=== PATIENT | male | born 1995 | race Hispanic/Latino ===

== ENCOUNTER 2024-05-27 13:26 | Emergency (ER) | payer SELFPAY ==
[~2024-05-27] VITALS: Ht 160 cm; Wt 90.7 kg
[2024-05-27] MEDS: IBUPROFEN 600 MG TAB PO STA (15:01)
[2024-05-27] MEDS: ACETAMINOPHEN 325 MG TAB PO ONE (15:01)
[2024-05-27] MEDS: SODIUM CHLORIDE 0.9% 1000ML 1,000 ML IV STA ×2 (15:02→16:27)
[2024-05-27 15:28] LABS: INFLUENZAE A&B ANTIGEN (RAPID) NEGATIVE (NEGATIVE); RESPIRATORY SYNC. VIRUS NEGATIVE (NEGATIVE)
[2024-05-27] MEDS: KETOROLAC TROMETHAMINE 30 MG/ML VIAL IV STA (16:27)
[2024-05-27 16:57] VITALS: PULSE 88; RESP 17; TEMP 99.7; O2SAT 100
== END 2024-05-27 17:15 | disposition home or self-care (01) ==
LOC: ER 14:09
DX: R50.9 Fever, unspecified (principal); B34.9 Viral infection, unspecified; R53.1 Weakness; R53.81 Other malaise; Z11.52 Encounter for screening for COVID-19
CPT/HCPCS: 87400; 87420; 99283; J1885; J7030; U0002

== ENCOUNTER 2024-06-01 18:10 | Inpatient (IN) | payer SELFPAY ==
[~2024-06-01] VITALS: Ht 160 cm; Wt 97.8 kg
[2024-06-01] MEDS ORDERED: IOPAMIDOL 370 MG/ML 100 ML INFUS..BTL INJ ONE (19:05)
[2024-06-01] MEDS ORDERED: KETOROLAC TROMETHAMINE 30 MG/ML VIAL ONE (19:32)
[2024-06-01] MEDS ORDERED: SODIUM CHLORIDE 0.9% 1000ML 1,000 ML ONE (19:32)
[2024-06-01] MEDS ORDERED: ONDANSETRON HCL INJ 2MG/ML 2ML 2 MG/ML VIAL ONE (19:32)
[2024-06-01] MEDS ORDERED: METRONIDAZOLE 500MG/NS 100ML 100 ML IV ONE (21:17)
[2024-06-01] MEDS ORDERED: CEFEPIME 2 GM in SODIUM CHLORIDE 0.9% 100 ML IV SCH (21:45)
[2024-06-01] MEDS ORDERED: PROMETHAZINE HCL (IM) 25 MG/ML VIAL IM PRN (22:00)
[2024-06-01 22:24] VITALS: PULSE 92; RESP 18; TEMP 98.1
[2024-06-01] MEDS: SODIUM CHLORIDE 0.9% IV SCH (22:31)
[2024-06-01] MEDS: CEFEPIME IV SCH (22:31)
[2024-06-01] MEDS: METRONIDAZOLE 500MG/NS 100ML 100 ML IV SCH (22:32)
[2024-06-01] MEDS: SODIUM CHLORIDE 0.9% 1000ML 1,000 ML IV SCH (23:21)
[2024-06-01] MEDS: ACETAMINOPHEN 1000 MG/100 ML IV SCH (23:22)
[2024-06-02] VITALS (11 sets, daily range): BP systolic 144–155; BP diastolic 74–85; PULSE 79–91; RESP 17–20; TEMP 97.9–98.8; O2SAT 98–100
[2024-06-02 08:02] LABS: BASOPHILS # (AUTO) 0.1 (0.0-0.1); BASOPHILS % 0.5 % (0.0-1.0); EOSINOPHILS # (AUTO) 0.1 (0.0-0.4); EOSINOPHILS % 0.3 % (0.0-6.0); HEMOGLOBIN 14.3 g/dL (14.0-18.0); LYMPHOCYTES # (AUTO) 2.7 (1.0-3.2); LYMPHOCYTES % 13.3 % (18.0-39.1); MEAN CORPUSCULAR HEMOGLOBIN 28.1 pg (28-32); MEAN CORPUSCULAR HGB CONC 31.8 g/dL (31-35); MEAN CORPUSCULAR VOLUME 88.4 fL (81-99); MONOCYTES # (AUTO) 1.7 (0.2-0.8); MONOCYTES % 8.2 % (4.4-11.3); NEUTROPHILS # (AUTO) 14.7 (2.1-6.9); NEUTROPHILS % 71.2 % (38.7-80.0); PLATELET COUNT 328 x10e3/uL (140-360); RED BLOOD COUNT 5.09 x10e6/uL (4.3-5.7); RED CELL DISTRIBUTION WIDTH 13.5 % (11.7-14.4); WHITE BLOOD COUNT 20.58 x10e3/uL (4.8-10.8)
[2024-06-02 08:33] LABS: ALBUMIN 2.7 g/dL (3.5-5.0); ALBUMIN/GLOBULIN RATIO 0.6 (0.8-2.0); ANION GAP 14.7 mmol/L (8-16); BILIRUBIN,TOTAL 0.8 mg/dL (0.2-1.2); CREATININE, SERUM 0.82 mg/dL (0.72-1.25); POTASSIUM 3.7 mmol/L (3.5-5.1)
[2024-06-02 10:36] LABS: BAND NEUTROPHILS % (MANUAL) 1 %; EOSINOPHILS % (MANUAL) 1 % (0-7); LYMPHOCYTES % (MANUAL) 12 % (19-48); METAMYELOCYTES % (MANUAL) 1 % (0-0); MONOCYTES % (MANUAL) 6 % (3.4-9.0); MYELOCYTES % (MANUAL) 2 % (0-0); NEUTROPHILS % (MANUAL) 65 % (40-74); PLATELET ESTIMATE ADEQUATE; PLATELET MORPHOLOGY COMMENT NORMAL; RBC MORPHOLOGY COMMENT NORMAL; REACTIVE LYMPHOCYTES 12
[2024-06-03] VITALS (8 sets, daily range): BP systolic 141–177; BP diastolic 66–84; PULSE 76–92; RESP 16–18; TEMP 98.2–99.7; O2SAT 98–100
[2024-06-03] MEDS: HYDRALAZINE HCL 20 MG/ML VIAL IV PRN (05:56)
[2024-06-03] MEDS: HYDROMORPHONE 1MG/1ML INJ IV PRN (05:56)
[2024-06-03 05:58] LABS: BASOPHILS % 0.1 % (0.0-1.0); EOSINOPHILS # (AUTO) 0.1 (0.0-0.4); EOSINOPHILS % 0.3 % (0.0-6.0); HEMATOCRIT 46.4 % (38.2-49.6); HEMOGLOBIN 15.1 g/dL (14.0-18.0); LYMPHOCYTES # (AUTO) 3.5 (1.0-3.2); MEAN CORPUSCULAR HEMOGLOBIN 28.1 pg (28-32); MEAN CORPUSCULAR HGB CONC 32.5 g/dL (31-35); MEAN CORPUSCULAR VOLUME 86.4 fL (81-99); MONOCYTES # (AUTO) 1.5 (0.2-0.8); MONOCYTES % 6.5 % (4.4-11.3); NEUTROPHILS # (AUTO) 16.5 (2.1-6.9); NEUTROPHILS % 71.4 % (38.7-80.0); PLATELET COUNT 369 x10e3/uL (140-360); RED BLOOD COUNT 5.37 x10e6/uL (4.3-5.7); RED CELL DISTRIBUTION WIDTH 13.5 % (11.7-14.4); WHITE BLOOD COUNT 23.12 x10e3/uL (4.8-10.8)
[2024-06-03 06:23] LABS: ANION GAP 18.4 mmol/L (8-16); CALCIUM 9.6 mg/dL (8.4-10.2); CREATININE, SERUM 0.82 mg/dL (0.72-1.25)
[2024-06-03 06:24] LABS: POTASSIUM 3.4 mmol/L (3.5-5.1)
[2024-06-03 10:04] LABS: BAND NEUTROPHILS % (MANUAL) 2 %; LYMPHOCYTES % (MANUAL) 21 % (19-48); METAMYELOCYTES % (MANUAL) 3 % (0-0); MONOCYTES % (MANUAL) 4 % (3.4-9.0); MYELOCYTES % (MANUAL) 3 % (0-0); NEUTROPHILS % (MANUAL) 67 % (40-74)
[2024-06-03 10:05] LABS: PLATELET ESTIMATE ADEQUATE; PLATELET MORPHOLOGY COMMENT NORMAL; RBC MORPHOLOGY COMMENT NORMAL
[2024-06-03] MEDS: ONDANSETRON HCL INJ 2MG/ML 2ML 2 MG/ML VIAL IV PRN (10:45)
[2024-06-04] VITALS (9 sets, daily range): BP systolic 135–162; BP diastolic 70–80; PULSE 83–98; RESP 18–20; TEMP 97.8–99; O2SAT 97–100
[2024-06-04 06:52] LABS: BASOPHILS # (AUTO) 0.2 (0.0-0.1); BASOPHILS % 0.6 % (0.0-1.0); EOSINOPHILS # (AUTO) 0.1 (0.0-0.4); EOSINOPHILS % 0.2 % (0.0-6.0); HEMATOCRIT 45.6 % (38.2-49.6); HEMOGLOBIN 14.9 g/dL (14.0-18.0); LYMPHOCYTES # (AUTO) 3.7 (1.0-3.2); LYMPHOCYTES % 12.9 % (18.0-39.1); MEAN CORPUSCULAR HEMOGLOBIN 28.2 pg (28-32); MEAN CORPUSCULAR HGB CONC 32.7 g/dL (31-35); MEAN CORPUSCULAR VOLUME 86.4 fL (81-99); MONOCYTES # (AUTO) 1.7 (0.2-0.8); MONOCYTES % 5.7 % (4.4-11.3); NEUTROPHILS # (AUTO) 22.1 (2.1-6.9); NEUTROPHILS % 76.2 % (38.7-80.0); PLATELET COUNT 379 x10e3/uL (140-360); RED BLOOD COUNT 5.28 x10e6/uL (4.3-5.7); RED CELL DISTRIBUTION WIDTH 14.1 % (11.7-14.4); WHITE BLOOD COUNT 28.94 x10e3/uL (4.8-10.8)
[2024-06-04 07:07] LABS: ANION GAP 18.5 mmol/L (8-16); CALCIUM 9.6 mg/dL (8.4-10.2); CREATININE, SERUM 0.85 mg/dL (0.72-1.25); POTASSIUM 3.5 mmol/L (3.5-5.1)
[2024-06-04 11:21] LABS: BAND NEUTROPHILS % (MANUAL) 2 %; LYMPHOCYTES % (MANUAL) 14 % (19-48); METAMYELOCYTES % (MANUAL) 1 % (0-0); MONOCYTES % (MANUAL) 6 % (3.4-9.0); NEUTROPHILS % (MANUAL) 77 % (40-74); PLATELET ESTIMATE ADEQUATE; PLATELET MORPHOLOGY COMMENT NORMAL
[2024-06-04] MEDS: ACETAMINOPHEN/CODEINE 300MG - 30MG TAB PO PRN (15:31)
[2024-06-04] MEDS: Morphine 2mg Syringe 2 MG/ML SYR IV PRN (21:56)
[2024-06-05] VITALS (8 sets, daily range): BP systolic 134–164; BP diastolic 68–88; PULSE 80–91; RESP 16–18; TEMP 98.4–98.7; O2SAT 90–100
[2024-06-05 08:09] LABS: BASOPHILS # (AUTO) 0.1 (0.0-0.1); BASOPHILS % 0.4 % (0.0-1.0); EOSINOPHILS % 0.2 % (0.0-6.0); HEMOGLOBIN 13.5 g/dL (14.0-18.0); LYMPHOCYTES # (AUTO) 2.4 (1.0-3.2); LYMPHOCYTES % 9.4 % (18.0-39.1); MEAN CORPUSCULAR HEMOGLOBIN 27.9 pg (28-32); MEAN CORPUSCULAR HGB CONC 32.1 g/dL (31-35); MEAN CORPUSCULAR VOLUME 86.8 fL (81-99); MONOCYTES # (AUTO) 1.3 (0.2-0.8); MONOCYTES % 5.1 % (4.4-11.3); NEUTROPHILS # (AUTO) 20.9 (2.1-6.9); NEUTROPHILS % 81.7 % (38.7-80.0); PLATELET COUNT 338 x10e3/uL (140-360); RED BLOOD COUNT 4.84 x10e6/uL (4.3-5.7); RED CELL DISTRIBUTION WIDTH 13.9 % (11.7-14.4); WHITE BLOOD COUNT 25.58 x10e3/uL (4.8-10.8)
[2024-06-05 11:11] LABS: BAND NEUTROPHILS % (MANUAL) 11 %; LYMPHOCYTES % (MANUAL) 9 % (19-48); METAMYELOCYTES % (MANUAL) 1 % (0-0); MONOCYTES % (MANUAL) 1 % (3.4-9.0); NEUTROPHILS % (MANUAL) 77 % (40-74); PLATELET ESTIMATE ADEQUATE; PLATELET MORPHOLOGY COMMENT NORMAL; RBC MORPHOLOGY COMMENT NORMAL; REACTIVE LYMPHOCYTES 1
[2024-06-06] VITALS (9 sets, daily range): BP systolic 139–150; BP diastolic 66–87; PULSE 76–89; RESP 16–18; TEMP 97.8–98.6; O2SAT 97–100
[2024-06-06 05:43] LABS: BASOPHILS # (AUTO) 0.1 (0.0-0.1); BASOPHILS % 0.5 % (0.0-1.0); EOSINOPHILS # (AUTO) 0.1 (0.0-0.4); EOSINOPHILS % 0.4 % (0.0-6.0); HEMATOCRIT 41.2 % (38.2-49.6); HEMOGLOBIN 13.2 g/dL (14.0-18.0); LYMPHOCYTES # (AUTO) 2.4 (1.0-3.2); LYMPHOCYTES % 11.9 % (18.0-39.1); MEAN CORPUSCULAR HEMOGLOBIN 27.9 pg (28-32); MEAN CORPUSCULAR VOLUME 87.1 fL (81-99); MONOCYTES % 5.1 % (4.4-11.3); NEUTROPHILS # (AUTO) 15.7 (2.1-6.9); NEUTROPHILS % 78.5 % (38.7-80.0); PLATELET COUNT 327 x10e3/uL (140-360); RED BLOOD COUNT 4.73 x10e6/uL (4.3-5.7); RED CELL DISTRIBUTION WIDTH 13.8 % (11.7-14.4); WHITE BLOOD COUNT 19.98 x10e3/uL (4.8-10.8)
[2024-06-07] VITALS: BP 127/75; PULSE 88; RESP 17; TEMP 98.7; O2SAT 100
[2024-06-07 04:00] VITALS: BP 131/82; PULSE 75; RESP 17; TEMP 97.8; O2SAT 100
[2024-06-07 07:02] LABS: BASOPHILS # (AUTO) 0.1 (0.0-0.1); BASOPHILS % 0.4 % (0.0-1.0); EOSINOPHILS # (AUTO) 0.1 (0.0-0.4); EOSINOPHILS % 0.5 % (0.0-6.0); HEMATOCRIT 47.6 % (38.2-49.6); HEMOGLOBIN 14.9 g/dL (14.0-18.0); LYMPHOCYTES # (AUTO) 2.8 (1.0-3.2); LYMPHOCYTES % 14.8 % (18.0-39.1); MEAN CORPUSCULAR HEMOGLOBIN 27.6 pg (28-32); MEAN CORPUSCULAR HGB CONC 31.3 g/dL (31-35); MEAN CORPUSCULAR VOLUME 88.1 fL (81-99); MONOCYTES # (AUTO) 0.9 (0.2-0.8); MONOCYTES % 4.5 % (4.4-11.3); NEUTROPHILS # (AUTO) 14.8 (2.1-6.9); NEUTROPHILS % 77.1 % (38.7-80.0); PLATELET COUNT 394 x10e3/uL (140-360); RED CELL DISTRIBUTION WIDTH 13.8 % (11.7-14.4); WHITE BLOOD COUNT 19.15 x10e3/uL (4.8-10.8)
[2024-06-07 08:18] VITALS: BP 138/74; PULSE 68; RESP 18; TEMP 98.1; O2SAT 100
[2024-06-07 08:27] VITALS: BP 138/74; PULSE 68; RESP 18; TEMP 98.1; O2SAT 100
[2024-06-07] MEDS ORDERED: METRONIDAZOLE500 MG PO (12:04)
[2024-06-07] MEDS ORDERED: LEVOFLOXACIN500 MG PO (12:07)
[2024-06-07] MEDS: LEVOFLOXACIN 500 MG TAB PO SCH (12:25)
[2024-06-07 12:36] VITALS: BP 147/86; PULSE 89; RESP 18; TEMP 98.7; O2SAT 98
[2024-06-07] MEDS ORDERED: ONDANSETRON HCL 4 MG ORAL DISINTEGRATING TAB PO PRN (13:15)
[2024-06-07] MEDS ORDERED: METRONIDAZOLE 500 MG TAB PO SCH (16:00)
== END 2024-06-07 13:57 | disposition home or self-care (01) | DRG 392 ==
LOC: FSED 18:14 → ERHOLD 22:09 → MED/SURG3 22:42
PROVIDERS: ADMIT Internal Medicine; ATTEND Internal Medicine
DX: K57.20 Diverticulitis of large intestine with perforation and abscess without bleeding (principal); E44.0 Moderate protein-calorie malnutrition; K50.118 Crohn's disease of large intestine with other complication; R65.10 Systemic inflammatory response syndrome (SIRS) of non-infectious origin without acute organ dysfunction; R19.7 Diarrhea, unspecified; Z11.52 Encounter for screening for COVID-19; R53.81 Other malaise; Z68.38 Body mass index [BMI] 38.0-38.9, adult; Z59.6 Low income; Z56.9 Unspecified problems related to employment; F17.200 Nicotine dependence, unspecified, uncomplicated
CPT/HCPCS: 36415; 71046; 74177; 80048; 80053; 80076; 81003; 83605; 85025; 87040; 99252; 99284; J0360; J0692; J1171; J1885; J2270; J2405; J2543; J7030; Q9967